=== PATIENT | male | born 1955 | race Hispanic/Latino ===

== ENCOUNTER 2022-09-05 07:04 | Day surgery (SDC) | payer SELFPAY ==
[~2022-09-05] VITALS: Ht 165.1 cm; Wt 81.6 kg
[~2022-09-05 07:04] MED LIST: FLEXERIL OR; GLIPIZIDE10 M1 OR; GLYSET25 MG OR; METFORMIN1000 MG OR; NAPROSYN500 MG PO; ZESTRIL10 M1 OR
[2022-09-05 09:30] VITALS: BP 116/62
== END 2022-09-05 09:40 | disposition home or self-care (01) | DRG 709 ==
LOC: ORM 07:04
PROVIDERS: ATTEND Urology
PROC: 0VTTXZZ Resection of Prepuce, External Approach (ICD-10-PCS; principal; 2022-09-05)
PROC: 0V5SXZZ Destruction of Penis, External Approach (ICD-10-PCS; 2022-09-05)
DX: N47.1 Phimosis (principal); N13.8 Other obstructive and reflux uropathy; A63.0 Anogenital (venereal) warts; I10 Essential (primary) hypertension; E11.9 Type 2 diabetes mellitus without complications; N40.1 Benign prostatic hyperplasia with lower urinary tract symptoms; E66.9 Obesity, unspecified; Z79.84 Long term (current) use of oral hypoglycemic drugs
CPT/HCPCS: J1100